=== PATIENT | male | born 1965 | race Two or more races ===

== ENCOUNTER 2022-11-01 10:50 | Day surgery (SDC) | payer OTHER | END 2022-11-01 14:15 | disposition home or self-care (01) | LOC: AMB-ENDOS 10:50 | PROVIDERS: ATTEND Colon & Rectal Surgery | DX: K57.32 Diverticulitis of large intestine without perforation or abscess without bleeding (principal); K57.30 Diverticulosis of large intestine without perforation or abscess without bleeding; K64.2 Third degree hemorrhoids; K52.89 Other specified noninfective gastroenteritis and colitis; K92.1 Melena; Z20.822 Contact with and (suspected) exposure to COVID-19; Z93.3 Colostomy status ==

== ENCOUNTER 2022-12-12 11:48 | Inpatient (IN) | payer OTHER ==
[~2022-12-12] VITALS: Ht 162.6 cm; Wt 61.2 kg
[2022-12-19] MEDS ORDERED: AMLODIPINE BESY10 MG (15:31)
[2022-12-19] MEDS ORDERED: ATORVASTATIN CA40 MG (15:31)
[2022-12-19] MEDS ORDERED: ESCITALOPRAM OX10 MG (15:31)
[2022-12-19] MEDS ORDERED: LEVETIRACETAM500 MG (15:31)
[2022-12-19] MEDS ORDERED: VASOTEC20 MG (15:32)
[2022-12-19] MEDS ORDERED: LISINOPRIL20 MG (15:32)
[2022-12-19] MEDS ORDERED: DIAZEPAM10 MG (15:32)
== END 2022-12-22 13:10 | disposition home or self-care (01) | DRG 330 ==
LOC: SURH 12-19 07:00 → O/R 12-19 09:03 → SURH 12-19 20:10
PROVIDERS: Internal Medicine Geriatric Medicine; Surgery; ADMIT Colon & Rectal Surgery; ATTEND Colon & Rectal Surgery
PROC: 0DBP4ZZ Excision of Rectum, Percutaneous Endoscopic Approach (ICD-10-PCS; 2022-12-19)
PROC: 0DBN4ZZ Excision of Sigmoid Colon, Percutaneous Endoscopic Approach (ICD-10-PCS; 2022-12-19)
PROC: 0DJD8ZZ Inspection of Lower Intestinal Tract, Via Natural or Artificial Opening Endoscopic (ICD-10-PCS; 2022-12-19)
PROC: 0DTN4ZZ Resection of Sigmoid Colon, Percutaneous Endoscopic Approach (ICD-10-PCS; principal; 2022-12-19 07:00)
DX: K57.32 Diverticulitis of large intestine without perforation or abscess without bleeding (principal); K92.1 Melena; K66.0 Peritoneal adhesions (postprocedural) (postinfection); R59.1 Generalized enlarged lymph nodes; K43.2 Incisional hernia without obstruction or gangrene